=== PATIENT | female | born 1985 | race American Indian/Alaskan Native ===

== ENCOUNTER 2018-07-25 14:35 | Emergency (ER) | payer OTHER ==
[2018-07-25 15:15] VITALS: BP 109/56
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
== END 2018-07-25 16:37 | disposition home or self-care (01) ==
LOC: ED 14:35
DX: M79.10 Myalgia, unspecified site (principal); Q90.9 Down syndrome, unspecified; V89.2XXA Person injured in unspecified motor-vehicle accident, traffic, initial encounter; Y93.89 Activity, other specified; Y92.488 Other paved roadways as the place of occurrence of the external cause; Y99.8 Other external cause status
CPT/HCPCS: 99282